=== PATIENT | female | born 1980 | race Caucasian/White ===

== ENCOUNTER 2020-08-19 19:35 | Emergency (ER) | payer SELFPAY ==
[2020-08-19 19:48] VITALS: BP 127/78; BP 138/90; PULSE 89; PULSE 92; RESP 16; TEMP 36.3; O2SAT 98; O2SAT 99; BMI 46.7
--- NOTE | 2020-08-19 19:56 | ED_ITS ---
HPI - Back Pain/Injury General Chief Complaint: Back Pain/Injury Stated Complaint: BACK PAIN Time Seen by Provider: 08/19/20 19:56 History of Present Illness HPI Narrative: Patient complains of back spasm and pain after bending today, she has had worsening pain in her back over the past 3 days since she twisted her back when she tripped and almost fell over, there is no numbness no weakness no change to bowel or bladder no burning with urination no fever no chills, the pain does radiate to the right leg Related Data Allergies Allergy/AdvReac Type Severity Reaction Status Date / Time No Known Allergies Allergy Verified 08/19/20 19:48 [No Known Allergies*] Review of Systems Review of Systems: No headache no neck pain no chest pain no abdominal pain no numbness no weakness no changes to bowel or bladder no dysuria no incontinence no fever no chills Yes all other systems are reviewed and are negative COUNT INCLUDES THE [facility] Past Medical History Attestation statement: The following information was validated with the patient. COUNT INCLUDES THE [facility] Narrative: Asthma back pain gastric bypass and asthma, no drugs or alcohol Medical History (Updated 08/19/20 @ 19:52 by Jania Oliver RN) No known health problems Social History Social History Advance Directives: No Advance Directives Information Provided: Yes Physical Exam Vital Signs: Vital Signs: Last Vital Signs Temp 97.3 F 08/19/20 19:48 Pulse 89 08/19/20 19:48 Resp 16 08/19/20 19:48 BP 127/78 08/19/20 19:48 Pulse Ox 99 08/19/20 19:48 Body Mass Index 46.7 Patient is A&O x3, no acute distress, comfortable laying in a comfortable position on the bed but very uncomfortable with movement Head normocephalic atraumatic The neck is supple The chest is clear to auscultation bilaterally, no respiratory distress The heart no murmur The abdomen is soft and nontender The back has lower lumbar paraspinal tenderness worse on the right side, no bony tenderness no skin changes no wound no redness no warmth no rash, no CVA tenderness, the skin is normal without redness or warmth Extremities the patient is able to move her upper extremities normally and it is painful to move her legs but she has good ankle flexion and strength and is able to move her toes, sensation is normal Course Course Course Narrative: Patient was treated with oxycodone and Valium with some relief but still unable to sit up or stand up At 09:00 o'clock the case is signed out to paras bee to revaluate and dispo patient
[2020-08-19 20:00] VITALS: BP 134/71; PULSE 72; RESP 16; TEMP 36.4; O2SAT 99
[2020-08-19] MEDS: diazePAM 5 MG TABLET PO ×2 (20:21)
[2020-08-19] MEDS: oxyCODONE HCl Immed Release 5 MG TABLET 10 MG PO (20:21)
[2020-08-19 22:00] VITALS: BP 138/73; PULSE 74; RESP 16; TEMP 36.3; O2SAT 97
--- NOTE | 2020-08-19 22:14 | PC.NURSE ---
PT ARRIVED VIA EMS C/O SCIATIC PAIN, CHRONIC ISSUE, AGGRAVATED BY RECENT LIFTING ACTIVITY. REPORTS L SIDED PAIN STARTING ABOVE HER HIP RADIATING ACROSS TO HER R SIDE. GOOD DISTAL SENSATION. GIVEN TORADOL 30MG BY EMS. ATTEMPTED TO TRIAL AMBULATION, PT REFUSED, STATING SHE IS STILL IN SEVERE PAIN.
[2020-08-19] MEDS: predniSONE 20 MG TABLET 40 MG PO (22:46)
[2020-08-19] MEDS: Lidocaine 4 % Patch ADH..PATCH 1 PATCH TRANSDERMA (22:46)
--- NOTE | 2020-08-19 22:46 | PC.NURSE ---
DISCUSSED WITH PROVIDER PT ALREADY REC'D TORADOL 30MG FROM EMS. ORDER TO BE CANCELLED. PT DISGRUNTLED WITH TREATMENT PLAN, REPORTS NO EFFECTIVE PAIN RELIEF. DISCUSSED OPTION FOR PT THAT STUFF DOESN'T WORK, I TRIED IT
[2020-08-20] VITALS: BP 125/65; PULSE 76; RESP 18; TEMP 36.3; O2SAT 98
[2020-08-20] MEDS: Morphine Sulfate 10 MG/ML CARTRIDGE IM (02:10)
== END 2020-08-20 02:27 | disposition home or self-care (01) ==
PROVIDERS: Emergency Provider Internal Medicine; PCP Hospitalist
DX: M54.5 Low back pain (principal)
CPT/HCPCS: 96372; 99284; J2270